=== PATIENT | male | born 1980 | race Caucasian/White ===

== ENCOUNTER 2016-12-29 20:39 | Emergency (ER) | payer MEDICAID ==
[~2016-12-29 20:39] MED LIST: AMOXIL500 M1 PO; BACTRIM DS TABL1 TA1 PO; BACTRIM DS TABL1 TAB PO; CETIRIZINE HCL10 M1 PO; DICLOFENAC PO; DILANTIN PO; KEFLEX PO; KEFLEX500 M1 PO; KEFLEX500 MG PO; KEPPRA500 M2 PO; LORTAB 5/500 TA1 TA2 PO; NO MEDICATIONS; PREDNISONE PO; ROBAXIN 750750 M1 DOB; VICODIN 5/1 TAB 5/50 PO; VICODIN 5/500 T1 TAB PO; VOLTAREN50 MG PO
== END 2016-12-29 21:36 | disposition home or self-care (01) ==
LOC: SED 20:39
DX: L02.414 Cutaneous abscess of left upper limb (principal); F19.10 Other psychoactive substance abuse, uncomplicated; F17.210 Nicotine dependence, cigarettes, uncomplicated
CPT/HCPCS: 10060; 99282

== ENCOUNTER 2017-03-14 18:26 | Emergency (ER) | payer MEDICAID ==
[~2017-03-14] VITALS: Ht 167.6 cm; Wt 59.0 kg
[2017-03-14] MEDS ORDERED: CLINDAMYCIN HC300 MG PO (20:34)
== END 2017-03-14 20:40 | disposition home or self-care (01) ==
LOC: SED 18:26
DX: L02.413 Cutaneous abscess of right upper limb (principal); R56.9 Unspecified convulsions; F17.200 Nicotine dependence, unspecified, uncomplicated
CPT/HCPCS: 10060; 99283